=== PATIENT | male | born 1930 | race Caucasian/White ===

== ENCOUNTER 2016-08-21 11:16 | Emergency (ER) | payer MEDICARE, OTHER ==
[~2016-08-21] VITALS: Ht 165.1 cm; Wt 59.2 kg
[~2016-08-21 11:16] MED LIST: ATOR20TA42 PO; CELE10TA9 PO; ENAL20TA81 PO; FISH1000 PO; HYDR12.56 PO; TAB-TAB PO
[2016-08-21 11:23] VITALS: BP 114/65; PULSE 73; RESP 18; TEMP 97.6; O2SAT 98
[2016-08-21] MEDS ORDERED: DIPHTH/TETANUS/ACEL PERTUSSIS (BOOSTER) 0.5 ML VIAL/PFS IM ONE (12:45)
--- NOTE | 2016-08-21 12:51 | PD ---
HPI Chief Complaint: Fall Time Seen by Provider: 12:26 Travel History International Travel<30 days: No Contact w/Intl Traveler<30days: No Traveled to known affect area: No History of Present Illness HPI Patient is an 86-year-old male who presents to emergency room with his friends for evaluation of fall. Patient reports that he was at [employer] today, reports that he stood up to receive communion and reports that he tripped on the carpeting and fell forward. Reports that landed face foward onto the pew. Pt reports facial laceration. Reports that his tetanus shot is not up-to-date. Patient reports that he does take a baby aspirin daily. Patient denies any loss of consciousness at time of fall. Patient denies neck pain. Patient denies chest pain or shortness of breath. Patient was able to ambulate and move all extremities after fall today. PFSH Past Medical History Cancer: Yes (PROSTATE CANCER/SEEDS) High Cholesterol: Yes Diabetes: No Diminished Hearing: No Glaucoma: No Hepatitis: No Hiatal Hernia: No Hypertension: Yes Thyroid Disease: No Tetanus Vaccination: > 5 Years Influenza Vaccination: Yes Past Surgical History Genitourinary Surgery: Yes (PROSTATE CA) Pacemaker: No Other Surgery: Yes Social History Alcohol Use: Yes (WINE DAILY) Tobacco Use: No Substance Use: No Allergies-Medications (Allergen,Severity, Reaction): Coded Allergies: No Known Allergies (Verified , 08/21/16) Reported Meds & Prescriptions Reported Meds & Active Scripts Active Reported Celexa (Citalopram Hydrobromide) 10 Mg Tab 10 Mg PO DAILY Hctz (Hydrochlorothiazide) 12.5 Mg Cap 12.5 Mg PO DAILY Multivitamin (Multivitamins) 1 Tab Tab 1 Tab PO DAILY Fish Oil 1,000 Mg Cap 1,000 Mg PO DAILY Vasotec (Enalapril Maleate) 20 Mg Tab 20 Mg PO DAILY Lipitor (Atorvastatin Calcium) 20 Mg Tab 20 Mg PO DAILY Review of Systems General / Constitutional: No: Fever Eyes: No: Visual changes HENT: No: Headaches Cardiovascular: No: Chest Pain or Discomfort Respiratory: No: Shortness of Breath Gastrointestinal: No: Abdominal Pain Genitourinary: No: Dysuria Musculoskeletal: No: Pain Skin: Positive Other (laceration), No Rash Neurologic: No: Weakness Psychiatric: No: Depression Endocrine: No: Polydipsia Hematologic/Lymphatic: No: Easy Bruising Physical Exam Narrative GENERAL: nad, nontoxic SKIN: Warm and dry. HEAD: Atraumatic. Normocephalic. EYES: Pupils equal and round. No scleral icterus. No injection or drainage. ENT: No nasal bleeding or discharge. Mucous membranes pink and moist. Patient with a 2cm laceration to right upper lip - this laceration does involve vermilion border, laceration is not through and through and does not extend into the mouth NECK: Trachea midline. No JVD. Patient with no midline tenderness CARDIOVASCULAR: Regular rate and rhythm. No murmur appreciated. RESPIRATORY: No accessory muscle use. Clear to auscultation. Breath sounds equal bilaterally. GASTROINTESTINAL: Abdomen soft, non-tender, nondistended. Hepatic and splenic margins not palpable. MUSCULOSKELETAL: No obvious deformities. No clubbing. No cyanosis. No edema. Patient moving all extremities without any difficulty, patient with no midline back tenderness NEUROLOGICAL: Awake and alert. No obvious cranial nerve deficits. Motor grossly within normal limits. Normal speech. PSYCHIATRIC: Appropriate mood and affect; insight and judgment normal. Data Data Last Documented VS Vital Signs Date Time Temp Pulse Resp B/P Pulse Ox O2 Delivery O2 Flow Rate FiO2 08/21/16 11:23 97.6 73 18 114/[address] Brain W/O Iv Contrast(Rout) (08/21/16 12:32) Ct Cerv Spine W/O Contrast (08/21/16 12:32) Wound Care (08/21/16 12:32) Nlls-Lyb-Fahvdw (Booster) Inj (Boostrix (08/21/16 12:45) Lidocaine Pf 1% Inj (Xylocaine-Mpf 1% In (08/21/16 13:30) MDM Medical Decision Making Medical Screen Exam Complete: Yes Emergency Medical Condition: Yes Interpretation(s) Vital Signs Date Time Temp Pulse Resp B/P Pulse Ox O2 Delivery O2 Flow Rate FiO2 08/21/16 11:23 97.6 73 18 114/[address] 08/21/16 1232 Signed Impressions: Service Date/Time: Sunday, August 21, 2016 12:47 - CONCLUSION: No acute disease. Cash Arriaga MD Cervical Spine CT 08/21/16 1232 Signed Impressions: Service Date/Time: Sunday, August 21, 2016 12:47 - CONCLUSION: Multilevel degenerative changes but no fracture or listhesis. Cash Arriaga MD Differential Diagnosis Facial laceration, intracranial hemorrhage, cervical spine fracture Narrative Course 86-year-old male who presents to emergency room with complaints of mechanical trip and fall while at [employer] today. Patient reports that he is on baby aspirin , patient with no complaints at this time. CT of the head and neck ordered for evaluation of possible trauma. Plan to update patient's tetanus as his tetanus has not been updated. Patient will require suture of his facial laceration CTs reviewed with patient, patient with no acute injury Patient's facial laceration was repaired using 2 layers. Discussed need for patient to return to ER or to PCP in 2 days for wound check. Patient will need sutures removed in 7 days to face Signs and symptoms of when to return to ER reviewed with patient detail. Procedures Procedure Narrative LACERATION LOCATION: right upper lip crosses vermilion border LENGTH: 2cm NUMBER OF STITCHES/LEIGHANN: 8 REPAIR: The area of the laceration was prepped with Betadine and sterilely draped. The laceration was infiltrated with 1% lidocaine. The wound was copiously irrigated and explored without evidence of foreign body, tendon injury or neurovascular injury. The wound was closed using 5.0 fast absorbing gut (inner layer) x 3 internal sutures and 2 simple interrupted suture at the lip/vermilion border, 3 - 5.0 nylon sutures were used to approximate laceration - simple interrupted sutures were placed. Vermilion border approximated during laceration repair. This was a multi-layer repair. A sterile dressing was applied. The patient was advised to keep the dressing clean and dry. Patient tolerated the procedure well. Diagnosis Primary Impression: Facial laceration Qualified Code: S01.81XA - Facial laceration, initial encounter Additional Impressions: Laceration of vermilion border of upper lip Qualified Code: S01.511A - Laceration of vermilion border of upper lip, initial encounter Closed head injury Qualified Code: S09.90XA - Closed head injury, initial encounter Patient Instructions: General Instructions Additional Instructions: Please return to the emergency room or to your primary care doctor in 2 days for reevaluation of your laceration, return to ER if he develops any signs of infection. Complete full course of antibiotics Please return to ER as needed Keep urinary of laceration clean, dry Apply bacitracin dressings to your wound three times a day Suture removal in [address] ice to lip as you will have swelling Please follow with plastic surgery if you develop a scar or if vermilion border of lip is not aligned after healing Med/Other Pt SpecificInfo: Prescription(s) given Scripts Cephalexin (Keflex)500 Mg Esw068 Mg PO Q6H 5 Days Ref 0 Prov:Lenora Becker DO 08/21/16 Disposition: 01 DISCHARGE HOME Condition: Fair Lenora Becker DO Aug 21, 2016 12:51
--- NOTE | 2016-08-21 13:07 | RADHPO ---
EXAM DATE/TIME: 08/21/2016 12:47 [facility] COMPARISON: No previous studies available for comparison. INDICATIONS : Fell today. Occipital pain. RADIATION DOSE: 61.40 CTDIvol (mGy) MEDICAL HISTORY : Hypertension. Carcinoma, prostate. SURGICAL HISTORY : None. ENCOUNTER: Initial ACUITY: 1 day PAIN SCALE: 4/10 LOCATION: occipital TECHNIQUE: Multiple contiguous axial images were obtained of the head. Using automated exposure control and adj ustment of the mA and/or kV according to patient size, radiation dose was kept as low as reasonably a chievable to obtain optimal diagnostic quality images. FINDINGS: There is diffuse atrophy. No hemorrhage, infarct, or mass. No fractures. CONCLUSION: No acute disease. Cash Arriaga MD on August 21, 2016 at 13:05 Board Certified Radiologist. This report was verified electronically.
--- NOTE | 2016-08-21 13:07 | RADHPO ---
EXAM DATE/TIME: 08/21/2016 12:47 [facility] COMPARISON: CT BRAIN W/O CONTRAST, August 21, 2016, 12:47. INDICATIONS : Fell today. Posterior neck pain. RADIATION DOSE: 26.40 CTDIvol (mGy) MEDICAL HISTORY : Hypertension. Carcinoma, prostate. SURGICAL HISTORY : None. ENCOUNTER: Initial ACUITY: 1 day PAIN SCALE: 4/10 LOCATION: neck TECHNIQUE: Volumetric scanning of the cervical spine was performed. Multiplanar reconstructions in the sagittal, coronal and oblique axial planes were performed. Using automated exposure control and adjustment o f the mA and/or kV according to patient size, radiation dose was kept as low as reasonably achievable to obtain optimal diagnostic quality images. FINDINGS: There is multilevel facet and uncovertebral hypertrophy. Moderate to severe disc space narrowing at C 4-5 or C6-7, greatest at C6-7. Multilevel osteophytosis. Odontoid process is intact. No compression d eformities or pre-vertebral soft tissue swelling. Broad-based central disc protrusion with mild canal narrowing at C3-4, moderate canal narrowing at C4-5 secondary to a diffuse disc bulge, and moderate to severe stenosis at C5-6 secondary to a diffuse disc osteophyte complex. CONCLUSION: Multilevel degenerative changes but no fracture or listhesis. Cash Arriaga MD on August 21, 2016 at 13:03 Board Certified Radiologist. This report was verified electronically.
[2016-08-21] MEDS ORDERED: LIDOCAINE HCL 1% PF 30 ML VIAL INFIL ONE (13:30)
[2016-08-21] MEDS ORDERED: CEPH-460 PO (14:03)
[2016-08-21] MEDS ORDERED: CEPHALEXIN MONOHYDRATE 500 MG CAP PO ONE (14:15)
[2016-08-21] MEDS ORDERED: BACITRACIN OINT 0.9 GM PKT TOP ONE (14:15)
[2016-08-21 14:37] VITALS: BP 110/64; PULSE 72; RESP 18; O2SAT 98
== END 2016-08-21 14:36 | disposition home or self-care (01) ==
LOC: PHED 11:16 → PHEFT 14:36
DX: S01.511A Laceration without foreign body of lip, initial encounter (principal); I10 Essential (primary) hypertension; S09.90XA Unspecified injury of head, initial encounter; W18.09XA Striking against other object with subsequent fall, initial encounter; Y93.89 Activity, other specified; Y92.22 Religious institution as the place of occurrence of the external cause
CPT/HCPCS: 12051; 70450; 72125; 90471; 90715

== ENCOUNTER 2016-08-29 12:17 | Emergency (ER) | payer MEDICARE, OTHER ==
[~2016-08-29] VITALS: Ht 167.6 cm; Wt 59.0 kg
[~2016-08-29 12:17] MED LIST changes: +CEPH-460 PO
[2016-08-29 12:28] VITALS: BP 144/86; PULSE 99; RESP 18; TEMP 97.6; O2SAT 98
--- NOTE | 2016-08-29 12:51 | PD ---
HPI Chief Complaint: Wound/Suture/Staple Re-Check Time Seen by Provider: 12:32 Travel History International Travel<30 days: No Contact w/Intl Traveler<30days: No Traveled to known affect area: No History of Present Illness HPI This patient is here for suture removal. He had stitches placed right side of his lower face 8 days ago. He denies drainage, symptoms are nonexistent PFSH Past Medical History Cancer: Yes (PROSTATE CANCER/SEEDS) High Cholesterol: Yes Diabetes: No Diminished Hearing: No Glaucoma: No Hepatitis: No Hiatal Hernia: No Hypertension: Yes Thyroid Disease: No Tetanus Vaccination: < 5 Years Influenza Vaccination: Yes Past Surgical History Genitourinary Surgery: Yes (PROSTATE CA) Pacemaker: No Other Surgery: Yes Social History Alcohol Use: Yes (WINE DAILY) Tobacco Use: No Substance Use: No Allergies-Medications (Allergen,Severity, Reaction): Coded Allergies: No Known Allergies (Verified , 08/29/16) Reported Meds & Prescriptions Reported Meds & Active Scripts Active Keflex (Cephalexin) 500 Mg Cap 500 Mg PO Q6H 5 Days Review of Systems General / Constitutional: No: Fever HENT: No: Headaches Cardiovascular: No: Chest Pain or Discomfort Physical Exam Narrative NECK: Symmetrical appearance, midline trachea. No mass or crepitus. Thyroid without enlargement, tenderness, or mass. SKIN: Inspection shows no rash or ulcers. Palpation shows no induration or nodules. Face: Has a few sutures in the right lower face that are scabbed over and the laceration looks well-healed Data Data Last Documented VS Vital Signs Date Time Temp Pulse Resp B/P Pulse Ox O2 Delivery O2 Flow Rate FiO2 08/29/16 12:28 97.6 99 18 144/86 98 MDM Medical Decision Making Medical Screen Exam Complete: Yes Emergency Medical Condition: Yes Medical Record Reviewed: Yes Differential Diagnosis Suture removal, facial laceration, dehiscence Narrative Course I have reviewed the patient's electronic medical record. Sutures removed The patient was advised to follow up with their physician and return if they worsen. Diagnosis Primary Impression: Encounter for removal of sutures Additional Instructions: The patient was advised to follow up with their physician and return if they worsen. Med/Other Pt SpecificInfo: Other Disposition: 01 DISCHARGE HOME Condition: Stable Emre Lee MD Aug 29, 2016 12:51
== END 2016-08-29 13:00 | disposition home or self-care (01) ==
LOC: PHEFT 12:17
DX: Z48.02 Encounter for removal of sutures (principal)
CPT/HCPCS: 99281